=== PATIENT | female | born 1995 | race Caucasian/White ===

== ENCOUNTER 2020-04-23 17:53 | Emergency (ER) | payer MEDICAID ==
[~2020-04-23] VITALS: Ht 167.6 cm; Wt 81.6 kg
[2020-04-23 18:08] VITALS: BP_SYST 128
--- NOTE | 2020-04-23 18:25 | NUR ---
Pt placed on tent at this time
--- NOTE | 2020-04-23 18:30 | NUR ---
Pt brought by self, A&Ox4, pt presents to ER with cough and chill since monday, skin pink and warm, cap refill <3, respirations even and unlabored.
--- NOTE | 2020-04-23 18:40 | NUR ---
Dr Chatman assessing patient on tent
--- NOTE | 2020-04-23 19:28 | NUR ---
Patient to ER bed 07 to gown for evaluation. Side rails up.
--- NOTE | 2020-04-23 19:40 | NUR ---
swabbed Covid-19 as protocol and sent to lab.
[2020-04-23 19:41] VITALS: BP_SYST 122
--- NOTE | 2020-04-23 19:41 | NUR ---
Patient given written and verbal discharge instructions and verbalizes understanding. ER MD discussed with patient the results and treatment provided. Patient in stable condition. ID arm band removed. No Rx given. Patient educated on pain management and to follow up with PMD. Pain Scale 0/10. Opportunity for questions provided and answered.
== END 2020-04-23 19:41 | disposition home or self-care (01) ==
LOC: SED 17:53
DX: B34.9 Viral infection, unspecified (principal)
CPT/HCPCS: 71045; 81025; 99284; U0003

== ENCOUNTER 2023-01-11 01:52 | Emergency (ER) | payer MEDICAID ==
[~2023-01-11] VITALS: Ht 165.1 cm; Wt 136.1 kg
--- NOTE | 2023-01-11 02:09 | NUR ---
PT FROM HOME REPORTING SHE TESTED POSITIVE FOR COVID. PT STATES SHE HAS NO SYMPTOMS AT THIS TIME. PT REQUESTING PCR COVID TEST. REQUESTED FOR MSE.
[2023-01-11 02:10] VITALS: BP_SYST 136
--- NOTE | 2023-01-11 02:12 | NUR ---
Patient triaged and placed in waiting room. VSS and patient appears in no acute distress at this time. Accompanied by PARTNER, awaiting available bed, and MD notified of need for MSE.
--- NOTE | 2023-01-11 02:33 | NUR ---
DR. GUTIERREZ WITH PATIENT IN WAITING ROOM FOR MSE.
[2023-01-11] MEDS ORDERED: BENZ100C92 PO (02:46)
[2023-01-11 03:04] VITALS: BP_SYST 136
--- NOTE | 2023-01-11 03:04 | NUR ---
Patient given written and verbal discharge instructions and verbalizes understanding. ER DR. GUTIERREZ discussed with patient the results and treatment provided. Patient in stable condition. ID arm band removed. Rx of BENZONATATE given. Patient educated on pain management and to follow up with PMD. Pain Scale 0. Opportunity for questions provided and answered. Medication side effect fact sheet provided.
== END 2023-01-11 03:04 | disposition home or self-care (01) ==
LOC: SED 01:52
DX: U07.1 COVID-19 (principal); J06.9 Acute upper respiratory infection, unspecified; R05.9 Cough, unspecified; R09.81 Nasal congestion; Z79.899 Other long term (current) drug therapy
CPT/HCPCS: 36415; 99283